=== PATIENT | female | born 1980 | race African-American/Black ===

== ENCOUNTER 2016-08-05 15:35 | Emergency (ER) | payer OTHER ==
--- NOTE | ~2016-08-05 | EKG ---
PATIENT: ERICH CHURCH UNIT #: [id number] Ventricular Rate: 96 BPM Atrial Rate: 96 BPM P-R Interval: 134 ms QRS Duration: 76 ms Q-T Interval: 326 ms QTC Calculation(Bezet): 411 ms P Hodges: 50 degrees Calculated R Hodges: 23 degrees Calculated T Hodges: 38 degrees Diagnosis Line: Sinus rhythm with occasional Premature ventricular Diagnosis Line: complexes Diagnosis Line: Otherwise normal ECG Diagnosis Line: No previous ECGs available Diagnosis Line: Confirmed by PACO BELL MD ([id number]) on Diagnosis Line: 08/05/2016 10:22:26 PM INTERPRETING MD: STEVEN
[2016-08-05 17:18] LABS: URINE SOURCE CLEAN CATCH
[2016-08-05 17:21] LABS: URINE APPEARANCE CLOUDY; URINE BILIRUBIN NEG (NEG); URINE BLOOD 3+ (NEG); URINE COLOR YELLOW; URINE GLUCOSE NEG (NEG); URINE KETONE TRACE (NEG); URINE LEUKOCYTE ESTERASE NEG (NEG); URINE NITRATE NEG (NEG); URINE PH 5.5 (5-8); URINE PROTEIN NEG (NEG); URINE SPECIFIC GRAVITY 1.024 (1.003-1.035)
[2016-08-05 17:23] LABS: CULTURE INDICATED? YES; URINE BACTERIA AUWI 2+ (NEGATIVE); URINE SQUAMOUS EPITHELIAL CELL MOD /[HPF]
== END 2016-08-05 17:45 | disposition home or self-care (01) ==
LOC: CED 15:35
PROVIDERS: Emergency Medicine
DX: J02.0 Streptococcal pharyngitis (principal); J06.9 Acute upper respiratory infection, unspecified; F17.210 Nicotine dependence, cigarettes, uncomplicated
CPT/HCPCS: 81003; 84703; 87086; 87880; 93005; 99282